=== PATIENT | female | born 1995 | race African-American/Black ===

== ENCOUNTER 2016-09-05 12:45 | Emergency (ER) | payer OTHER ==
[2016-09-05] MEDS ORDERED: NS 0.9% 1000 ML* 1,000 ML IV ONE (13:33)
--- NOTE | 2016-09-05 14:01 | RAD ---
HISTORY: Syncope COMPARISONS: None VIEWS:1: Single frontal portable view of the chest at 1:45 PM FINDINGS: LINES AND TUBES: None. CARDIOMEDIASTINAL SILHOUETTE: The cardiomediastinal silhouette is normal for portable technique. PLEURA: The costophrenic angles are sharp. No pleural abnormalities are noted. LUNG PARENCHYMA: The lungs are clear. ABDOMEN: The upper abdomen is clear. There is no subphrenic gas. BONES AND SOFT TISSUES: No bone or soft tissue abnormalities are noted. IMPRESSION: NO ACTIVE CARDIOPULMONARY DISEASE.
[2016-09-05 14:05] LABS: Hematocrit 37 % (35-47); Mean Corpuscular HGB Conc 33 g/dl (31-36); Mean Corpuscular Hemoglobin 29 pg (27-31); Mean Corpuscular Volume 87 fL (80-97); Mean Platelet Volume 10 um3 (7.4-10.4); Red Blood Count 4.19 10^6/ul (4.0-5.4); Red Cell Distribution Width 13 % (10.5-15); White Blood Count 7.4 10^3/ul (3.5-10.8)
[2016-09-05 14:25] LABS: ALT 9 U/L (7-52); AST 14 U/L (13-39); Albumin 3.4 g/dL (3.2-5.2); Alkaline Phosphatase 43 U/L (34-104); Anion Gap 4 mmol/L (2-11); BUN/Creatinine Ratio 13.5 (8-20); Blood Urea Nitrogen 10 mg/dL (6-24); C Reactive Protein 8.97 mg/L (< 5.00); CO2 Carbon Dioxide 26 mmol/L (22-32); Calcium 8.7 mg/dL (8.6-10.3); Chloride 110 mmol/L (101-111); Creatine Kinase 108 U/L (10-223); EGFR Non-African American 101.1 (>60); Globulin 3.1 g/dL (2-4); Glucose 91 mg/dL (70-100); Lipase < 10 U/L (11.0-82.0); Potassium 3.9 mmol/L (3.5-5.0); Sodium 140 mmol/L (133-145); Total Protein 6.5 g/dL (6.4-8.9)
[2016-09-05 15:10] LABS: TSH (Thyroid Stimulating Horm) 0.21 mcIU/mL (0.34-5.60)
--- NOTE | 2016-09-05 15:41 | ED ---
Sujit Clemons Benjamin, scribed for Camden García MD on 09/05/16 at 1451 . Syncope/Near Syncope - HPI Summary HPI Summary: 20yo female comes to ED after a syncopal episode. Pt passed out when trying to eat earlier today. Pt felt nauseous prior to the episode and then passed out for a few seconds. Pt then felt better instantly after drinking some water/. Pt reports having cloudy vision at the time of incident. She felt fine this morning , but has been sick with URI like illness lately, with symptoms like sore throat , runny nose, and sinus congestion. Denies any changes in heart beat or being SOB at the time of onset, and also denies any prior syncopal episodes or any injuries upon fall. - History Of Current Complaint Chief Complaint: EDSyncope Time Seen by Provider: 09/05/16 14:09 Hx Obtained From: Patient Onset/Duration: Sudden Onset, Lasting Minutes - few seconds, Resolved Timing: Intermittent Episode Lasting Context: Witnessed Activity At Onset: At Rest Associated Head Trauma: No Aggravating Factor(s): Nothing Alleviating Factor(s): Nothing Associated Signs And Symptoms: Lightheadedness - Allergies/Home Medications Allergies/Adverse Reactions: Allergies Allergy/AdvReac Type Severity Reaction Status Date / Time No Known Allergies Allergy Verified 09/05/16 13:17 PMH/Surg Hx/FS Hx/Imm Hx Endocrine/Hematology History: Denies: Hx Diabetes Cardiovascular History: Denies: Hx Hypertension, Hx Pacemaker/ICD Respiratory History: Reports: Hx Asthma History: Denies: Hx Renal Disease Sensory History: Denies: Hx Hearing Aid Psychiatric History: Denies: Hx Panic Disorder - Surgical History Surgery Procedure, Year, and Place: Lt KNEE - MMT & ACL. 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) Infectious Disease History: No Infectious Disease History: Denies: Traveled Outside the [place] in Last 30 Days - Family History Known Family History: Positive: Hypertension, Diabetes Negative: Cardiac Disease - Social History Occupation: Employed Full-time Lives: With Family Alcohol Use: None Substance Use Type: Reports: None Smoking Status (MU): Never Smoked Tobacco Review of Systems Constitutional: Negative Positive: Blurred Vision ENT: Negative Cardiovascular: Negative Respiratory: Negative Positive: Nausea Genitourinary: Negative Musculoskeletal: Negative Skin: Negative Neurological: Other - lightheadedness Positive: Syncope Psychological: Normal All Other Systems Reviewed And Are Negative: Yes Physical Exam Triage Information Reviewed: Yes Vital Signs On Initial Exam: Initial Vitals Temp Pulse Resp BP Pulse Ox 98.3 F 83 16 116/73 100 09/05/16 12:53 09/05/16 12:53 09/05/16 12:53 09/05/16 12:53 09/05/16 12:53 Vital Signs Reviewed: Yes Appearance: Positive: Well-Appearing, No Pain Distress, Well-Nourished Skin: Positive: Warm, Skin Color Reflects Adequate Perfusion, Dry Head/Face: Positive: Normal Head/Face Inspection Eyes: Positive: Normal ENT: Positive: Normal ENT inspection Neck: Positive: Supple, Nontender Respiratory/Lung Sounds: Positive: Clear to Auscultation, Breath Sounds Present Cardiovascular: Positive: RRR Abdomen Description: Positive: Nontender, Soft Bowel Sounds: Positive: Present Musculoskeletal: Positive: Strength/ROM Intact Neurological: Positive: Sensory/Motor Intact, Alert, Oriented to Person Place, Time, CN Intact II-III Psychiatric: Positive: Affect/Mood Appropriate - Mohinder Coma Scale Coma Scale Total: 15 Diagnostics - Vital Signs Vital Signs Temp Pulse Resp BP Pulse Ox 09/05/16 14:04 82 22 100 09/05/16 13:55 89 136/85 09/05/16 13:50 75 127/81 09/05/16 12:59 98.3 F 83 16 116/83 100 09/05/16 12:53 98.3 F 83 16 116/73 100 - Laboratory Lab Results: Lab Results 09/05/16 09/05/16 09/05/16 Range/Units 13:55 13:55 13:55 WBC 7.4 (3.5-10.8) 10^3/ul RBC 4.19 (4.0-5.4) 10^6/ul Hgb 12.0 (12.0-16.0) g/dl Hct 37 (35-47) % MCV 87 (80-97) fL MCH 29 (27-31) pg MCHC 33 (31-36) g/dl RDW 13 (10.5-15) % Plt Count 238 (150-450) 10^3/ul MPV 10 (7.4-10.4) um3 Neut % (Auto) 66.6 (38-83) % Lymph % (Auto) 27.0 (25-47) % Coke % (Auto) 5.5 (1-9) % Eos % (Auto) 0.6 (0-6) % Baso % (Auto) 0.3 (0-2) % Absolute Neuts (auto) 5.0 (1.5-7.7) 10^3/ul Absolute Lymphs (auto) 2.0 (1.0-4.8) 10^3/ul Absolute Monos (auto) 0.4 (0-0.8) 10^3/ul Absolute Eos (auto) 0 (0-0.6) 10^3/ul Absolute Basos (auto) 0 (0-0.2) 10^3/ul Absolute Nucleated RBC 0.01 10^3/ul Nucleated RBC % 0.1 INR (Anticoag Therapy) 0.86 L (0.89-1.11) APTT 23.9 L (26.0-36.3) seconds Sodium 140 (133-145) mmol/L Potassium 3.9 (3.5-5.0) mmol/L Chloride 110 (101-111) mmol/L Carbon Dioxide 26 (22-32) mmol/L Anion Gap 4 (2-11) mmol/L BUN 10 (6-24) mg/dL Creatinine 0.74 (0.51-0.95) mg/dL Est GFR ( Amer) 130.0 (>60) Est GFR (Non-Af Amer) 101.1 (>60) BUN/Creatinine Ratio 13.5 (8-20) Glucose 91 (70-100) mg/dL Lactic Acid (0.5-2.0) mmol/L Calcium 8.7 (8.6-10.3) mg/dL Total Bilirubin 0.30 (0.2-1.0) mg/dL AST 14 (13-39) U/L ALT 9 (7-52) U/L Alkaline Phosphatase 43 (34-104) U/L Total Creatine Kinase 108 (10-223) U/L CK-MB (CK-2) 2.3 (0.6-6.3) ng/mL Troponin I 0.00 (<0.04) ng/mL C-Reactive Protein 8.97 H (< 5.00) mg/L Total Protein 6.5 (6.4-8.9) g/dL Albumin 3.4 (3.2-5.2) g/dL Globulin 3.1 (2-4) g/dL Albumin/Globulin Ratio 1.1 (1-3) Lipase < 10 L (11.0-82.0) U/L TSH Pending Beta HCG, Quant < 0.60 mIU/mL 09/05/16 Range/Units 13:55 WBC (3.5-10.8) 10^3/ul RBC (4.0-5.4) 10^6/ul Hgb (12.0-16.0) g/dl Hct (35-47) % MCV (80-97) fL MCH (27-31) pg MCHC (31-36) g/dl RDW (10.5-15) % Plt Count (150-450) 10^3/ul MPV (7.4-10.4) um3 Neut % (Auto) (38-83) % Lymph % (Auto) (25-47) % Coke % (Auto) (1-9) % Eos % (Auto) (0-6) % Baso % (Auto) (0-2) % Absolute Neuts (auto) (1.5-7.7) 10^3/ul Absolute Lymphs (auto) (1.0-4.8) 10^3/ul Absolute Monos (auto) (0-0.8) 10^3/ul Absolute Eos (auto) (0-0.6) 10^3/ul Absolute Basos (auto) (0-0.2) 10^3/ul Absolute Nucleated RBC 10^3/ul Nucleated RBC % INR (Anticoag Therapy) (0.89-1.11) APTT (26.0-36.3) seconds Sodium (133-145) mmol/L Potassium (3.5-5.0) mmol/L Chloride (101-111) mmol/L Carbon Dioxide (22-32) mmol/L Anion Gap (2-11) mmol/L BUN (6-24) mg/dL Creatinine (0.51-0.95) mg/dL Est GFR ( Amer) (>60) Est GFR (Non-Af Amer) (>60) BUN/Creatinine Ratio (8-20) Glucose (70-100) mg/dL Lactic Acid 1.0 (0.5-2.0) mmol/L Calcium (8.6-10.3) mg/dL Total Bilirubin (0.2-1.0) mg/dL AST (13-39) U/L ALT (7-52) U/L Alkaline Phosphatase (34-104) U/L Total Creatine Kinase (10-223) U/L CK-MB (CK-2) (0.6-6.3) ng/mL Troponin I (<0.04) ng/mL C-Reactive Protein (< 5.00) mg/L Total Protein (6.4-8.9) g/dL Albumin (3.2-5.2) g/dL Globulin (2-4) g/dL Albumin/Globulin Ratio (1-3) Lipase (11.0-82.0) U/L TSH Beta HCG, Quant mIU/mL Result Diagrams: 09/05/16 13:55 09/05/16 13:55 Lab Statement: Any lab studies that have been ordered have been reviewed, and results considered in the medical decision making process. - Radiology CXR Xray Interpretation: No Acute Changes Radiology Interpretation Completed By: Radiologist Course/Dx Course Of Treatment: NO CRITICAL CARE TIME. PATIENT FEELS WELL IN ED. ATE AND AMBULATED IN ED. DISCUSSED RESULTS WITH PATIENT. SHE WILL F/U WITH [facility] FOR THE LOW TSH. DISCHARGE HOME STABLE. - Diagnoses Provider Diagnoses: Syncope, Hyperthyroidism Discharge - Discharge Plan Condition: Stable Disposition: HOME Patient Education Materials: Syncope (ED), Hyperthyroidism (ED) Referrals: No Primary Care Phys,NOPCP [Primary Care Provider] - Additional Instructions: FOLLOW UP WITH [facility]. RETURN TO THE EMERGENCY DEPARTMENT FOR ANY WORSENING OF YOUR CONDITION OR QUESTIONS OR CONCERNS. The documentation as recorded by the Sujit gutierrez Benjamin accurately reflects the service I personally performed and the decisions made by me, Camden García MD.
[2016-09-05 15:54] VITALS: BP 132/80
== END 2016-09-05 15:52 | disposition home or self-care (01) ==
LOC: ED 12:45
DX: R55 Syncope and collapse (principal); E05.90 Thyrotoxicosis, unspecified without thyrotoxic crisis or storm; R42 Dizziness and giddiness; R11.0 Nausea
CPT/HCPCS: 36415; 71010; 80053; 82550; 82553; 83605; 83690; 84443; 84484; 84702; 85025; 85610; 85730; 86140; 93005; 96360; 99283